=== PATIENT | female | born 2000 | race Caucasian/White ===

== ENCOUNTER 2019-09-06 13:33 | Emergency (ER) | payer BC ==
--- NOTE | 2019-09-06 13:37 | ERPHSYRPT ---
- History of Present Illness Time Seen by Provider: 09/06/19 13:37 Source: patient, family Exam Limitations: no limitations Physician History: 19 y/o white female presents with 5 weeks of intermittent vaginal bleeding after being dx with a right tubal . pts supervisor dials was dr. perez out of [facility] [place]. pt was started on methotrexate to aid in tx of pts vaginal bleeding following tubal . dx. pts pain is left lower quadrant. pt states in the last couple of days, vaginal bleeding has been increasing. pt also wants another opinion for her bleeding. called dr. gamboa and he could not see pt today so pt told to come to this ED today. CT abd/pelvis 09/05/19 small volume of hemoperitoneum with sentinel clot in left pelvis. transvaginal/ transabdominal US-small amount of hemoperitoneum c/w ct abd/pelvis on same day. Timing/Duration: week(s) (5) Activites at Onset: none Quality: cramping Onset Location: RLQ (present but not as painful as left), LLQ Pain Radiation: none Severity of Pain-Max: mild Severity of Pain-Current: mild Prior abdominal problems: other (evacuation of right tubal 5 weeks ago ) Sexual intercourse history: non-contributory Modifying Factors: Worsens With: vomiting Associated Symptoms: abdominal pain (llq), vaginal discharge (bleeding), No diaphoresis, No vomiting, No urinary frequency, No lower back pain Allergies/Adverse Reactions: No Known Drug Allergies Allergy (Unverified 09/06/19 13:59) Home Medications: Ferrous Sulfate [Iron] 325 mg PO DAILY 09/06/19 [History] Hydrocodone Bit/Acetaminophen [Hydrocodon-Acetaminophen 5-500] 1 each PO Q4H PRN 09/06/19 [History] - Review of Systems Constitutional: No Symptoms Eyes: No Symptoms Ears, Nose, & Throat: No Symptoms Respiratory: No Symptoms Cardiac: No Symptoms Abdominal/Gastrointestinal: Abdominal Pain Genitourinary Symptoms: Vaginal Bleeding Musculoskeletal: No Symptoms Skin: No Symptoms Neurological: No Symptoms Psychological: No Symptoms Endocrine: No Symptoms Hematologic/Lymphatic: No Symptoms Immunological/Allergic: No Symptoms All Other Systems: Reviewed and Negative - Past Medical History Pertinent Past Medical History: Yes Neurological History: No Pertinent History ENT History: No Pertinent History Cardiac History: No Pertinent History Respiratory History: No Pertinent History Endocrine Medical History: No Pertinent History Musculoskeletal History: No Pertinent History GI Medical History: No Pertinent History History: No Pertinent History Female Reproductive Disorders: Other (h/o right tubal ) - Social History Smoking Status: Never smoker - Nursing Vital Signs Nursing Vital Signs: Initial Vital Signs Temperature 98.1 F 09/06/19 13:43 Pulse Rate 95 H 09/06/19 13:43 Respiratory Rate 18 09/06/19 13:43 Blood Pressure 121/64 09/06/19 13:43 O2 Sat by Pulse Oximetry 100 09/06/19 13:43 Pain Scale Pain Intensity 2 - Physical Exam General Appearance: no apparent distress, alert, anxiety Eye Exam: PERRL/EOMI, eyes nml inspection Ears, Nose, Throat Exam: normal ENT inspection, moist mucous membranes Neck Exam: normal inspection, non-tender, supple, full range of motion Respiratory Exam: normal breath sounds, lungs clear, airway intact, No chest tenderness, No respiratory distress Cardiovascular Exam: regular rate/rhythm, normal heart sounds, normal peripheral pulses Gastrointestinal/Abdomen Exam: soft, normal bowel sounds, tenderness (llq), No guarding, No rebound Pelvic Exam: not done Rectal Exam: not done Back Exam: normal inspection, normal range of motion, No CVA tenderness, No vertebral tenderness Extremity Exam: normal inspection, normal range of motion, pelvis stable Neurologic Exam: alert, oriented x 3, cooperative, 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 as tested Skin Exam: normal color, warm, dry Lymphatic Exam: No adenopathy SpO2 Interpretation: normal O2 Delivery: Room Air Ordered Tests: Active Orders 24 hr Category Date Time Status IV Insertion STAT Care 09/06/19 14:15 Active CBC W DIFF Stat Lab 09/06/19 14:20 Completed CMP Stat Lab 09/06/19 14:20 Completed HCG, Quantitative (Inhouse) Stat Lab 09/06/19 15:35 Ordered PROTIME WITH INR Stat Lab 09/06/19 14:20 Completed UA W/RFX UR CULTURE Stat Lab 09/06/19 14:15 Uncollected Medication Summary Discontinued Medications Generic Name Dose Route Start Last Admin Trade Name Freq PRN Reason Stop Dose Admin Sodium Chloride 1,000 mls @ 999 mls/hr 09/06/19 14:15 09/06/19 15:32 Sodium Chloride 0.9% 1000 Ml IV 09/06/19 15:15 Infused .Q1H1M STA Infusion Sodium Chloride Confirm 09/06/19 14:23 Sodium Chloride 0.9% 1000 Ml Administered 09/06/19 14:24 Dose 1,000 mls @ .ROUTE .[facility] Lab/Rad Data: Laboratory Result Diagrams 09/06/19 14:20 09/06/19 14:20 Laboratory Results 09/06/19 09/06/19 09/06/19 Range/Units 14:20 14:20 14:20 WBC 5.4 (4.0-10.5) K/mm3 RBC 3.16 L (4.1-5.4) M/mm3 Hgb 9.5 L (12.0-16.0) gm/dl Hct 29.2 L (35-47) % MCV 92.4 (78-100) fl MCH 30.0 (26-32) pg MCHC 32.5 (32-36) g/dl RDW 14.1 H (11.5-14.0) % Plt Count 230 (150-450) K/mm3 MPV 10.1 H (6-9.5) fl Gran % 72.6 H (36.0-66.0) % Eos # (Auto) 0.07 (0-0.5) Absolute Lymphs (auto) 0.86 L (1.0-4.6) Absolute Monos (auto) 0.52 (0.0-1.3) Lymphocytes % 16.0 L (24.0-44.0) % Monocytes % 9.7 (0.0-12.0) % Eosinophils % 1.3 (0.00-5.0) % Basophils % 0.4 (0.0-0.4) % Absolute Granulocytes 3.91 (1.4-6.9) Basophils # 0.02 (0-0.4) PT 14.3 H (9.95-12.35) SECONDS INR 1.26 (0.8-3.0) Sodium 143 (137-145) mmol/L Potassium 3.7 (3.5-5.1) mmol/L Chloride 108 H (98-107) mmol/L Carbon Dioxide 24 (22-30) mmol/L Anion Gap 14.5 (5-15) MEQ/L BUN 8 (7-17) mg/dL Creatinine 0.40 L (0.52-1.04) mg/dL Estimated GFR > 60.0 ML/MIN Glucose 85 (74-106) mg/dL Calcium 9.1 (8.4-10.2) mg/dL Total Bilirubin 1.10 (0.2-1.3) mg/dL AST 15 (14-36) U/L ALT 8 (0-35) U/L Alkaline Phosphatase 46 (38-126) U/L Serum Total Protein 6.9 (6.3-8.2) g/dL Albumin 4.2 (3.5-5.0) g/dL - Progress Progress: unchanged Air Movement: good Progress Note: 09/06/19 15:52 dr. gamboa to take pt to OR for d & c, diagnostic laparoscopy and possible salpingectomy. Blood Culture(s) Obtained: No Antibiotics given: No Discussed with DrHope: Tatyana (spoke with dr. gamboa, ob, i reviewed pt hx, lab and condition with him. he is coming to ED to [facility] Will see patient in: ED Counseled pt/family regarding: lab results, diagnosis - Departure Departure Disposition: Transfer (to outpatient surgery for procedure direct from ED) Clinical Impression: Vaginal bleeding Condition: Stable Critical Care Time: No Referrals: SHAN ELIZABETH [Primary Care Provider] -
[2019-09-06] MEDS ORDERED: Sodium Chloride 0.9% 1000 ML 1,000 ML IV STA (14:15)
[2019-09-06] MEDS ORDERED: Sodium Chloride 0.9% 1000 ML 1,000 ML ONE (14:23)
[2019-09-06 14:32] LABS: Absolute Neutrophil Ct (ANC) 3.91 (1.4-6.9); BASOPHIL % 0.4 % (0.0-0.4); Basophil (Absolute #) 0.02 (0-0.4); Eosinophil % 1.3 % (0.00-5.0); Eosinophil (Absolute #) 0.07 (0-0.5); Hematocrit 29.2 % (35-47); Hemoglobin 9.5 gm/dl (12.0-16.0); Lymphocyte (Absolute #) 0.86 (1.0-4.6); Mean Cell Volume 92.4 fl (78-100); Mean Corpuscular Hgb Concent. 32.5 g/dl (32-36); Mean Platelet Volume 10.1 fl (6-9.5); Monocyte (Absolute #) 0.52 (0.0-1.3); Monocytes % 9.7 % (0.0-12.0); Neutrophil % 72.6 % (36.0-66.0); Platelet Count 230 K/mm3 (150-450); Red Blood Count 3.16 M/mm3 (4.1-5.4); Red Cell Distribution Width 14.1 % (11.5-14.0); White Blood Count 5.4 K/mm3 (4.0-10.5)
[2019-09-06 14:41] LABS: ALBUMIN 4.2 g/dL (3.5-5.0); ALKALINE PHOSPHATASE 46 U/L (38-126); ANION GAP 14.5 MEQ/L (5-15); BLOOD UREA NITROGEN 8 mg/dL (7-17); CHLORIDE 108 mmol/L (98-107); Calcium 9.1 mg/dL (8.4-10.2); Carbon Dioxide 24 mmol/L (22-30); Glucose 85 mg/dL (74-106); Potassium 3.7 mmol/L (3.5-5.1); SGOT/AST 15 U/L (14-36); SGPT/ALT 8 U/L (0-35); SODIUM 143 mmol/L (137-145); Total Protein 6.9 g/dL (6.3-8.2)
[2019-09-06 14:58] LABS: INR 1.26 (0.8-3.0); PROTIME 14.3 SECONDS (9.95-12.35)
[2019-09-06 15:41] VITALS: BP 107/70; PULSE 75; O2SAT 97
[2019-09-06] MEDS ORDERED: Quelicin Fliptop 200 MG/10 ML ONE (16:18)
[2019-09-06] MEDS ORDERED: SUBLIMAZE 100 MCG/2 ML ONE (16:18)
[2019-09-06] MEDS ORDERED: DIPRIVAN 200 MG/20 ML IV ONE (16:18)
[2019-09-06] MEDS ORDERED: Zemuron 100 MG/10 ML ONE (16:18)
[2019-09-06] MEDS ORDERED: Lactated Ringers 1,000 ML IV ONE ×2 (16:23→17:43)
[2019-09-06 16:25] LABS: Appearance CLEAR (CLEAR); Bilirubin NEGATIVE (NEGATIVE); Blood LARGE Ery/ul (0-5); Glucose NEGATIVE (NEGATIVE); Ketones NEGATIVE (NEGATIVE); Leukocyte Esterase NEGATIVE (NEGATIVE); Mucus SLIGHT /HPF (NEGATIVE); Nitrite NEGATIVE (NEGATIVE); Protein,Urine Dip NEGATIVE (Negative); Specific Gravity 1.009 (1.005-1.025); Urobilinogen NEGATIVE mg/dL (0-1); WBC 0-2 /HPF (0-5)
[2019-09-06 16:58] LABS: ABO TYPING O; Antibody Screen NEGATIVE (NEGATIVE); RH TYPING POSITIVE
[2019-09-06] MEDS ORDERED: Sensorcaine 0.25% 10 ML ONE (17:11)
[2019-09-06] MEDS ORDERED: TORAdol 30 mg Injection ONE (17:24)
[2019-09-06] MEDS ORDERED: Zofran 4 MG/2 ML VIAL ONE (17:24)
[2019-09-06] MEDS ORDERED: Decadron 4 MG INJ ONE (17:24)
[2019-09-06] MEDS ORDERED: BRIDION 200MG/2ML IV ONE (17:24)
[2019-09-06] MEDS ORDERED: Thrombin-JMI 5000 UNITS TP ONE (17:43)
[2019-09-06] MEDS ORDERED: DEMEROL 50 MG ONE (18:18)
--- NOTE | 2019-09-07 09:17 | OP ---
SURGERY DATE/TIME: 09/06/2019 1651 PREOPERATIVE DIAGNOSIS: Suspected ruptured ectopic , abdominal pelvic pain and heavy uterine bleeding. POSTOPERATIVE DIAGNOSIS: Ruptured left side ectopic distal fallopian tube, omental adhesions and hemoperitoneum. PROCEDURES: 1) Dilation and curettage. 2) Diagnostic laparoscopy. 3) Lysis of omental adhesions. 4) Evacuation of left-sided ectopic . 5) Evacuation of hemoperitoneum. SURGEON: Tom Lee D.O. ACCOUNTANCY PROFESSOR: Orion. ANESTHESIA: General. ESTIMATED BLOOD LOSS: Less than 50 cc. Hemoperitoneum approximately 75 to 100 cc. COMPLICATIONS: None. INDICATIONS: The risks, benefits, indications and alternatives of the procedure were reviewed with the patient prior to the procedure. The patient understood the risk of infection, bleeding, bowel injury, bladder injury, ureteral injury, vascular injury, possible loss of fallopian tubes, possible salpingectomy, possible salpingoscopy and possible infertility. The patient understands all of these risks associated with the surgery and desires to have this procedure as a possible need to alleviate her current medical condition. DESCRIPTION OF PROCEDURE AND FINDINGS: At this point the patient is taken to the operating room, given general sedation, placed in dorsal lithotomy position. Prepped and draped in the usual sterile fashion. A weighted speculum is then placed in the patient's vagina and the anterior lip of the cervix is grasped with a single tooth tenaculum. Endocervical dilators were advanced to the endocervical canal as a means to dilate the cervix and at this point a curette was then placed into the fundus of the uterus and curettage was performed in all quadrants of the uterus retrieving a mild amount of tissue. From this point uterine manipulator was then inserted into the uterus without complication. All instruments were then removed from the patient's vaginal region. Attention was then turned to the patient's abdomen where a 5 mm skin incision was made in the umbilical fold and a 5 mm trocar and sleeve were advanced under direct visualization without complication and pneumoperitoneum was obtained with 4 liters CO2 gas. An additional incision was made in the left middle quadrant region where a 5 mm incision was made and the 5 mm trocar and sleeve were advanced under direct visualization. An additional incision was made approximately 2 cm above the symphysis pubis where 5 mm trocar and sleeve were advanced under direct visualization and was done so without complication. At this point visualization revealed her to have approximately 3 cm dense omental adhesion between the uterus and the omentum where at this point the LigaSure was used to lyse the adhesions the dense adhesions that were located on the anterior fundal region of the uterus. After removal and dissection relieving the adhesions from the omentum to the uterus, approximately 75 to 100 cc of hemoperitoneum was noticed in the posterior cul-de-sac where evacuation was taking place. After suction, irrigation and evacuation the right fallopian tube was noted to be within normal limits as well as the ovary. The left ovary was densely adhesed to the left pelvic side wall where the uterus was rotated towards her left as well. Also noted was the distal end of the fallopian end there was a remnant of products of conception extruding from the left fallopian tube where the distal end of the tube appeared to be ruptured and products of conception were noted at this point and is removed. It will be sent to pathology. After evacuation of the hemoperitoneum there was no bleeding that was noted at the time even after releasing pneumoperitoneum and reintroducing pneumoperitoneum where visualization again revealed no bleeding that was noted coming from the left adnexa. The left adnexa appeared to be densely adhesed to the left abdominal side wall where as well the left fallopian tube was adhesed to the left side wall with the cul-de-sac as well with significant adhesion. From this point thrombin was introduced into the left adnexa for further hemostasis and was done so without complication. At this point there were no other gross abnormalities located within the abdominal cavity. At this point all instruments were then removed from the patient's abdominal region. The incisions were closed with 4-0 Monocryl suture with subsequent Dermabond. The patient was taken out of the dorsal lithotomy position and was taken out of anesthesia and was then taken to the recovery room in stable condition. All instruments and laps were accounted for x2.
== END 2019-09-06 20:00 | disposition home or self-care (01) ==
LOC: ED 13:33
DX: N93.9 Abnormal uterine and vaginal bleeding, unspecified (principal); R10.2 Pelvic and perineal pain; O00.102 Left tubal pregnancy without intrauterine pregnancy; K66.0 Peritoneal adhesions (postprocedural) (postinfection); K66.1 Hemoperitoneum
CPT/HCPCS: 36000; 36415; 80053; 81001; 84702; 85025; 85610; 86850; 86900; 86901; 96360; 96374; 99140; 99284; J0330; J1100; J1885; J2175; J2405; J2704; J3010

== ENCOUNTER 2020-11-08 09:07 | Emergency (ER) | payer MEDICAID ==
[2020-11-08 09:19] VITALS: O2SAT 100
[2020-11-08] MEDS ORDERED: Zofran 4 MG/2 ML VIAL IV ONE (09:26)
[2020-11-08] MEDS ORDERED: Sodium Chloride 0.9% 1000 ML 1,000 ML IV STA ×2 (09:26→10:34)
--- NOTE | 2020-11-08 09:26 | ERPHSYRPT ---
- History of Present Illness Time Seen by Provider: 11/08/20 09:25 Historian: patient Exam Limitations: no limitations Patient Subjective Stated Complaint: Pt is 21 weeks and when she first found out that she was she found out that her gallbladder was bad, hasn't really had an issue until last night, pt is having left sided upper abdominal pain, N&V Triage Nursing Assessment: Pt was brought to the ER by her mother, tachycardic, pain in left upper abdomen and into her back and ribs Physician History: This is a 20-year-old white female who is 21 weeks and presents with left upper quadrant abdominal pain that radiates around and through to her back. Patient had similar symptoms and was found to have cholelithiasis without cholecystitis. Patient's pain recurred last night with slow onset and persisted throughout the night and worsened this morning. She has had associated nausea and vomiting. She denies chest pain and she denies shortness of breath. Timing/Duration: yesterday Activities at Onset: none Quality: sharpness, stabbing Abdominal Pain Onset Location: LUQ, epigastric Pain Radiation: back Modifying Factors: Improves With: vomiting Associated Symptoms: nausea, vomiting Previous symptoms: same symptoms as today Allergies/Adverse Reactions: No Known Drug Allergies Allergy (Verified 11/08/20 09:27) Home Medications: Doxylamine Succinate/Vit B6 [Doxylamine-Pyridoxine 10-10 mg] 1 each PO DAILY 11/08/20 [History] Vits W-Ca,Fe,FA(<1Mg) [] 1 each PO DAILY 11/08/20 [History] Travel Risk - International Travel Have you traveled outside of the country in past 3 weeks: No - Coronavirus Screening Are you exhibiting any of the following symptoms?: No Close contact with a COVID-19 positive Pt in past 14-21 Days: No - Review of Systems Constitutional: No Symptoms Eyes: No Symptoms Ears, Nose, & Throat: No Symptoms Respiratory: No Symptoms Cardiac: No Symptoms Abdominal/Gastrointestinal: Abdominal Pain, Nausea, Vomiting Genitourinary Symptoms: No Symptoms Musculoskeletal: No Symptoms Skin: No Symptoms Neurological: No Symptoms Psychological: No Symptoms Endocrine: No Symptoms Hematologic/Lymphatic: No Symptoms All Other Systems: Reviewed and Negative - Past Medical History Pertinent Past Medical History: Yes Neurological History: No Pertinent History ENT History: No Pertinent History Cardiac History: No Pertinent History Respiratory History: No Pertinent History Endocrine Medical History: No Pertinent History Musculoskeletal History: No Pertinent History GI Medical History: No Pertinent History History: No Pertinent History Female Reproductive Disorders: Other - Past Surgical History Past Surgical History: Yes Female Surgical History: Section - Social History Smoking Status: Never smoker Exposure to second hand smoke: No Drug Use: none Patient Lives Alone: No - Female History Hx Now: Yes Expected Date of Delivery: 03/19/21 - Nursing Vital Signs Nursing Vital Signs: Initial Vital Signs Temperature 98.4 F 11/08/20 09:11 Pulse Rate 120 H 11/08/20 09:11 Blood Pressure 129/80 11/08/20 09:11 O2 Sat by Pulse Oximetry 100 11/08/20 09:11 Pain Scale Pain Intensity [Right Upper 3 Abdomen] Pain Intensity 3 - Physical Exam General Appearance: mild distress, alert, anxiety Eye Exam: PERRL/EOMI, eyes nml inspection Ears, Nose, Throat Exam: normal ENT inspection, moist mucous membranes Neck Exam: normal inspection, non-tender, supple, full range of motion Respiratory Exam: normal breath sounds, lungs clear, airway intact, No chest tenderness, No respiratory distress Cardiovascular Exam: tachycardia Gastrointestinal/Abdomen Exam: soft, normal bowel sounds, tenderness (Left upper quadrant), other, No guarding, No rebound Pelvic Exam: not done Rectal Exam: not done Back Exam: normal inspection, normal range of motion, No CVA tenderness, No vertebral tenderness Extremity Exam: normal inspection, normal range of motion, pelvis stable Neurologic Exam: alert, oriented x 3, cooperative, 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 as tested, normal mood/affect, nml cerebellar function, nml station & gait, sensation nml Skin Exam: normal color, warm, dry Lymphatic Exam: No adenopathy SpO2 Interpretation: normal SpO2: 100 O2 Delivery: Room Air - Course Nursing assessment & vital signs reviewed: Yes Ordered Tests: Active Orders 24 hr Category Date Time Status Heart Tones-ED STAT Care 11/08/20 10:17 Active IV Insertion STAT Care 11/08/20 09:26 Active AMYLASE Stat Lab 11/08/20 09:26 Completed CBC W DIFF Stat Lab 11/08/20 09:26 Completed CMP Stat Lab 11/08/20 09:26 Completed LIPASE Stat Lab 11/08/20 09:26 Completed Lactic Acid Stat Lab 11/08/20 09:26 Completed UA W/RFX UR CULTURE Stat Lab 11/08/20 10:41 Results Medication Summary Generic Name Dose Route Start Last Admin Trade Name Joesph PRN Reason Stop Dose Admin Sodium Chloride 1,000 mls @ 999 mls/hr 11/08/20 10:34 11/08/20 10:40 Sodium Chloride 0.9% 1000 Ml IV 11/08/20 11:34 999 mls/hr .Q1H1M STA Administration Discontinued Medications Generic Name Dose Route Start Last Admin Trade Name Joesph PRN Reason Stop Dose Admin Sodium Chloride 1,000 mls @ 999 mls/hr 11/08/20 09:26 11/08/20 10:41 Sodium Chloride 0.9% 1000 Ml IV 11/08/20 10:26 Infused .Q1H1M STA Infusion Sodium Chloride Confirm 11/08/20 09:35 Sodium Chloride 0.9% 1000 Ml Administered 11/08/20 09:36 Dose 1,000 mls @ ud .ROUTE .ST[facility] ONE Sodium Chloride Confirm 11/08/20 10:38 Sodium Chloride 0.9% 1000 Ml Administered 11/08/20 10:39 Dose 1,000 mls @ ud .ROUTE .STK-[facility] ONE Nalbuphine HCl 5 mg 11/08/20 09:30 11/08/20 09:39 Nubain 10 Mg/Ml IV 11/08/20 09:31 5 mg STAT ONE Administration Nalbuphine HCl Confirm 11/08/20 09:35 Nubain 10 Mg/Ml Administered 11/08/20 09:36 Dose 10 mg .ROUTE .STK-MED ONE Ondansetron HCl 4 mg 11/08/20 09:26 11/08/20 09:36 Zofran 4 Mg/2 Ml Vial IV 11/08/20 09:27 4 mg STAT ONE Administration Ondansetron HCl Confirm 11/08/20 09:35 Zofran 4 Mg/2 Ml Vial Administered 11/08/20 09:36 Dose 4 mg .ROUTE .STK-MED ONE Lab/Rad Data: Laboratory Result Diagrams 11/08/20 09:26 11/08/20 09:26 Laboratory Results 11/08/20 11/08/20 11/08/20 Range/Units 10:41 09:26 09:26 WBC (4.0-10.5) K/mm3 RBC (4.1-5.4) M/mm3 Hgb (12.0-16.0) gm/dl Hct (35-47) % MCV (78-100) fl MCH (26-32) pg MCHC (32-36) g/dl RDW (11.5-14.0) % Plt Count (150-450) K/mm3 MPV (7.5-11.0) fl Gran % (36.0-66.0) % Eos # (Auto) (0-0.5) Absolute Lymphs (auto) (1.0-4.6) Absolute Monos (auto) (0.0-1.3) Lymphocytes % (24.0-44.0) % Monocytes % (0.0-12.0) % Eosinophils % (0.00-5.0) % Basophils % (0.0-0.4) % Absolute Granulocytes (1.4-6.9) Basophils # (0-0.4) Sodium 138 (137-145) mmol/L Potassium 3.5 (3.5-5.1) mmol/L Chloride 106 (98-107) mmol/L Carbon Dioxide 23 (22-30) mmol/L Anion Gap 12.8 (5-15) MEQ/L BUN 6 L (7-17) mg/dL Creatinine 0.37 L (0.52-1.04) mg/dL Estimated GFR > 60.0 ML/MIN Glucose 99 (74-106) mg/dL Lactic Acid 1.9 (0.4-2.0) Calcium 9.5 (8.4-10.2) mg/dL Total Bilirubin 0.30 (0.2-1.3) mg/dL AST 22 (14-36) U/L ALT 13 (0-35) U/L Alkaline Phosphatase 65 (38-126) U/L Serum Total Protein 7.5 (6.3-8.2) g/dL Albumin 4.3 (3.5-5.0) g/dL Amylase 89 (30-110) U/L Lipase 95 (23-300) U/L Urine Color YELLOW (YELLOW) Urine Appearance CLOUDY (CLEAR) Urine pH 8.0 (5-6) Ur Specific [place] 1.013 (1.005-1.025) Urine Protein NEGATIVE (Negative) Urine Ketones NEGATIVE (NEGATIVE) Urine Blood NEGATIVE (0-5) Segundo/ul Urine Nitrite NEGATIVE (NEGATIVE) Urine Bilirubin NEGATIVE (NEGATIVE) Urine Urobilinogen NEGATIVE (0-1) mg/dL Ur Leukocyte Esterase NEGATIVE (NEGATIVE) Urine WBC (Auto) 0-2 (0-5) /HPF Urine RBC (Auto) 0-2 (0-2) /HPF U Epithel Cells (Auto) RARE (FEW) /HPF Urine Bacteria (Auto) RARE (NEGATIVE) /HPF Amorphous Crystals MANY (NEGATIVE) /HPF Urine Mucus (Auto) SLIGHT (NEGATIVE) /HPF Urine Culture Reflexed Pending Urine Glucose NEGATIVE (NEGATIVE) mg/dL 11/08/20 Range/Units 09:26 WBC 10.4 (4.0-10.5) K/mm3 RBC 3.36 L (4.1-5.4) M/mm3 Hgb 10.4 L (12.0-16.0) gm/dl Hct 31.2 L (35-47) % MCV 92.9 (78-100) fl MCH 31.0 (26-32) pg MCHC 33.3 (32-36) g/dl RDW 14.4 H (11.5-14.0) % Plt Count 225 (150-450) K/mm3 MPV 10.8 (7.5-11.0) fl Gran % 85.9 H (36.0-66.0) % Eos # (Auto) 0.04 (0-0.5) Absolute Lymphs (auto) 0.87 L (1.0-4.6) Absolute Monos (auto) 0.54 (0.0-1.3) Lymphocytes % 8.4 L (24.0-44.0) % Monocytes % 5.2 (0.0-12.0) % Eosinophils % 0.4 (0.00-5.0) % Basophils % 0.1 (0.0-0.4) % Absolute Granulocytes 8.95 H (1.4-6.9) Basophils # 0.01 (0-0.4) Sodium (137-145) mmol/L Potassium (3.5-5.1) mmol/L Chloride (98-107) mmol/L Carbon Dioxide (22-30) mmol/L Anion Gap (5-15) MEQ/L BUN (7-17) mg/dL Creatinine (0.52-1.04) mg/dL Estimated GFR ML/MIN Glucose (74-106) mg/dL Lactic Acid (0.4-2.0) Calcium (8.4-10.2) mg/dL Total Bilirubin (0.2-1.3) mg/dL AST (14-36) U/L ALT (0-35) U/L Alkaline Phosphatase (38-126) U/L Serum Total Protein (6.3-8.2) g/dL Albumin (3.5-5.0) g/dL Amylase (30-110) U/L Lipase (23-300) U/L Urine Color (YELLOW) Urine Appearance (CLEAR) Urine pH (5-6) Ur Specific [place] (1.005-1.025) Urine Protein (Negative) Urine Ketones (NEGATIVE) Urine Blood (0-5) Segundo/ul Urine Nitrite (NEGATIVE) Urine Bilirubin (NEGATIVE) Urine Urobilinogen (0-1) mg/dL Ur Leukocyte Esterase (NEGATIVE) Urine WBC (Auto) (0-5) /HPF Urine RBC (Auto) (0-2) /HPF U Epithel Cells (Auto) (FEW) /HPF Urine Bacteria (Auto) (NEGATIVE) /HPF Amorphous Crystals (NEGATIVE) /HPF Urine Mucus (Auto) (NEGATIVE) /HPF Urine Culture Reflexed Urine Glucose (NEGATIVE) mg/dL - Progress Progress: improved, pain not gone completely, re-examined Progress Note: 11/08/20 11:26 Medical decision making: This patient is 21 weeks and presented with nausea vomiting and left upper quadrant abdominal pain with radiation to her back. It is presumed that she has had a gallbladder "attack". She does have a history of cholelithiasis. Patient symptomatically is improved. She has no further abdominal pain or epigastric discomfort. She does have mild amount of back pain. We have been giving her a trial of oral fluids. If she tolerates this we will discharge her to home. She can use Tylenol and her doxylami ne/pyridoxine for nausea and vomiting control. We are having OB see this patient prior to her discharge home. Counseled pt/family regarding: lab results, diagnosis, need for follow-up - Departure Departure Disposition: Home Clinical Impression: Abdominal pain during in second trimester, Nausea/vomiting in Condition: Stable Critical Care Time: No Referrals: PRIYA LAST [Primary Care Provider] - Additional Instructions: Avoid fatty greasy spicy foods. Use Tylenol for pain. Use your doxylamine/pyridoxine medication to control your nausea and vomiting. Go directly from here to the obstetric department for further evaluation and monitoring. Follow-up with your dough sheeter for further management.
[2020-11-08] MEDS ORDERED: Nubain 10 MG/ML IV ONE (09:30)
[2020-11-08] MEDS ORDERED: Nubain 10 MG/ML ONE (09:35)
[2020-11-08] MEDS ORDERED: Sodium Chloride 0.9% 1000 ML 1,000 ML ONE ×2 (09:35→10:38)
[2020-11-08] MEDS ORDERED: Zofran 4 MG/2 ML VIAL ONE (09:35)
[2020-11-08 09:38] LABS: Absolute Neutrophil Ct (ANC) 8.95 (1.4-6.9); BASOPHIL % 0.1 % (0.0-0.4); Basophil (Absolute #) 0.01 (0-0.4); Eosinophil % 0.4 % (0.00-5.0); Eosinophil (Absolute #) 0.04 (0-0.5); Hematocrit 31.2 % (35-47); Hemoglobin 10.4 gm/dl (12.0-16.0); Lymphocyte (Absolute #) 0.87 (1.0-4.6); Lymphocytes % 8.4 % (24.0-44.0); Mean Cell Volume 92.9 fl (78-100); Mean Corpuscular Hgb Concent. 33.3 g/dl (32-36); Mean Platelet Volume 10.8 fl (7.5-11.0); Monocyte (Absolute #) 0.54 (0.0-1.3); Monocytes % 5.2 % (0.0-12.0); Neutrophil % 85.9 % (36.0-66.0); Platelet Count 225 K/mm3 (150-450); Red Blood Count 3.36 M/mm3 (4.1-5.4); Red Cell Distribution Width 14.4 % (11.5-14.0); White Blood Count 10.4 K/mm3 (4.0-10.5)
[2020-11-08 09:45] LABS: ALBUMIN 4.3 g/dL (3.5-5.0); ALKALINE PHOSPHATASE 65 U/L (38-126); AMYLASE 89 U/L (30-110); ANION GAP 12.8 MEQ/L (5-15); BLOOD UREA NITROGEN 6 mg/dL (7-17); CHLORIDE 106 mmol/L (98-107); Calcium 9.5 mg/dL (8.4-10.2); Carbon Dioxide 23 mmol/L (22-30); Creatinine 1 0.37 mg/dL (0.52-1.04); EST GLOMERULAR FILTRATION RATE > 60.0 ML/MIN; Glucose 99 mg/dL (74-106); LIPASE 95 U/L (23-300); Potassium 3.5 mmol/L (3.5-5.1); SGOT/AST 22 U/L (14-36); SGPT/ALT 13 U/L (0-35); SODIUM 138 mmol/L (137-145); Total Protein 7.5 g/dL (6.3-8.2)
[2020-11-08 10:39] LABS: Appearance CLOUDY (CLEAR); Bacteria RARE /HPF (NEGATIVE); Bilirubin NEGATIVE (NEGATIVE); Blood NEGATIVE Ery/ul (0-5); Epithelial Cells RARE /HPF (FEW); Glucose NEGATIVE (NEGATIVE); Ketones NEGATIVE (NEGATIVE); Leukocyte Esterase NEGATIVE (NEGATIVE); Mucus SLIGHT /HPF (NEGATIVE); Nitrite NEGATIVE (NEGATIVE); Protein,Urine Dip NEGATIVE (Negative); RBC 0-2 /HPF (0-2); Specific Gravity 1.013 (1.005-1.025); Urobilinogen NEGATIVE mg/dL (0-1); WBC 0-2 /HPF (0-5)
[2020-11-08 10:47] LABS: Amourphous Crystal MANY /HPF (NEGATIVE)
[2020-11-08 11:22] VITALS: BP 116/76; PULSE 102
== END 2020-11-08 12:15 | disposition other institution (70) ==
LOC: ED 09:07
DX: O21.0 Mild hyperemesis gravidarum (principal); Z3A.21 21 weeks gestation of pregnancy; R10.9 Unspecified abdominal pain
CPT/HCPCS: 36000; 36415; 80053; 81001; 82150; 83605; 83690; 85025; 96360; 96374; 96375; 99284; J2300; J2405

== ENCOUNTER 2020-11-08 12:10 | Observation (INO) | payer MEDICAID ==
[2020-11-08 13:16] VITALS: BP 115/68; PULSE 102; O2SAT 99
== END 2020-11-08 13:25 | disposition home or self-care (01) ==
LOC: OB 12:10
PROVIDERS: ADMIT Obstetrics & Gynecology; ATTEND Obstetrics & Gynecology
DX: Z34.82 Encounter for supervision of other normal pregnancy, second trimester (principal); Z3A.21 21 weeks gestation of pregnancy
CPT/HCPCS: 36000; 36415; 80053; 81001; 82150; 83605; 83690; 85025; 96360; 96374; 96375; 99284; G0378; J2300; J2405

== ENCOUNTER 2021-02-09 13:21 | Observation (INO) | payer MEDICAID ==
[2021-02-09 14:10] VITALS: BP 115/75; PULSE 115
== END 2021-02-09 14:50 | disposition home or self-care (01) ==
LOC: WHC 13:21 → OB 13:50
PROVIDERS: ADMIT Obstetrics & Gynecology; ATTEND Obstetrics & Gynecology
DX: O36.5930 Maternal care for other known or suspected poor fetal growth, third trimester, not applicable or unspecified (principal); Z3A.34 34 weeks gestation of pregnancy
CPT/HCPCS: 59025; 59426; 81002; G0378

== ENCOUNTER 2021-02-16 13:45 | Observation (INO) | payer MEDICAID ==
[2021-02-16 14:08] VITALS: BP 130/78
[2021-02-16 15:37] VITALS: PULSE 89
== END 2021-02-16 15:15 | disposition home or self-care (01) ==
LOC: OB 13:45
PROVIDERS: ADMIT Obstetrics & Gynecology; ATTEND Obstetrics & Gynecology
DX: O36.5930 Maternal care for other known or suspected poor fetal growth, third trimester, not applicable or unspecified (principal); Z3A.35 35 weeks gestation of pregnancy
CPT/HCPCS: 59025; G0378

== ENCOUNTER 2021-02-23 13:00 | Observation (INO) | payer MEDICAID ==
--- NOTE | 2021-02-23 13:56 | XRAY ---
Indication: growth. 2-dimensional OB ultrasound performed. Comparison: January 21 2021 There is again a single viable intrauterine in cephalic presentation. heart rate 159 BPM. Posterior fundal placenta without abruption/previa. BPD measures 8.73 cm corresponding to 35 weeks 2 days. HC measures 31.59 cm corresponding to 35 weeks 3 days. AC measures 32.01 cm corresponding to 36 weeks 0 days. FL measures 6.92 cm corresponding to 35 weeks 4 days. Estimated weight 6 lbs. 1 oz., +/-15 ounces. Approximately 30 percentile. SEAN is 17.7 cm. Impression: Again single viable intrauterine with mean gestational age 35 weeks 4 days. There has been progression of the . No new/acute abnormalities.
[2021-02-23 14:02] VITALS: BP 121/85; PULSE 114
== END 2021-02-23 14:35 | disposition home or self-care (01) ==
LOC: OB 13:00
PROVIDERS: ADMIT Obstetrics & Gynecology; ATTEND Obstetrics & Gynecology
DX: Z34.83 Encounter for supervision of other normal pregnancy, third trimester (principal); Z3A.36 36 weeks gestation of pregnancy
CPT/HCPCS: 59025; 76816; G0378

== ENCOUNTER 2021-03-05 12:02 | Observation (INO) | payer MEDICAID ==
[2021-03-05 13:55] VITALS: BP 119/73; PULSE 69
== END 2021-03-05 13:10 | disposition home or self-care (01) ==
LOC: OB 12:02
PROVIDERS: ADMIT Family Medicine; ATTEND Family Medicine
DX: Z34.83 Encounter for supervision of other normal pregnancy, third trimester (principal); Z3A.34 34 weeks gestation of pregnancy
CPT/HCPCS: 59025; G0378

== ENCOUNTER 2021-03-10 04:50 | Inpatient (IN) | payer MEDICAID ==
[2021-03-10] MEDS ORDERED: Reglan 10 MG/2 ML IV SCH (05:00)
[2021-03-10] MEDS ORDERED: SOD CITRATE-CITRIC ACID SOLN PO SCH (05:00)
[2021-03-10] MEDS ORDERED: Lactated Ringers 1,000 ML IV ONE (05:00)
[2021-03-10] MEDS ORDERED: Lactated Ringers 1,000 ML IV SCH (05:00)
[2021-03-10] MEDS ORDERED: Pepcid 20 MG VIAL IV SCH (05:00)
[2021-03-10] MEDS ORDERED: CEFAZOLIN 2 GM-D5W BAG** 2 GM/50 ML ML IV SCH (05:30)
[2021-03-10 05:32] LABS: Amourphous Crystal FEW /HPF (NEGATIVE); Appearance SLIGHTLY CLOUDY (CLEAR); Bacteria MANY /HPF (NEGATIVE); Bilirubin NEGATIVE (NEGATIVE); Blood NEGATIVE Ery/ul (0-5); Epithelial Cells RARE /HPF (FEW); Glucose NEGATIVE (NEGATIVE); Ketones NEGATIVE (NEGATIVE); Leukocyte Esterase TRACE (NEGATIVE); Mucus SLIGHT /HPF (NEGATIVE); Nitrite NEGATIVE (NEGATIVE); Protein,Urine Dip NEGATIVE (Negative); RBC 0-2 /HPF (0-2); Specific Gravity 1.005 (1.005-1.025); Urobilinogen NEGATIVE mg/dL (0-1)
[2021-03-10 05:37] LABS: Hematocrit 35.1 % (35-47); Mean Cell Volume 87.5 fl (78-100); Mean Corpuscular Hemoglobin 27.4 pg (26-32); Mean Corpuscular Hgb Concent. 31.3 g/dl (32-36); Mean Platelet Volume 11.5 fl (7.5-11.0); Platelet Count 203 K/mm3 (150-450); Red Blood Count 4.01 M/mm3 (4.1-5.4); Red Cell Distribution Width 18.7 % (11.5-14.0); White Blood Count 6.4 K/mm3 (4.0-10.5)
[2021-03-10 06:00] LABS: INR 0.98 (0.8-3.0); PROTIME 11.1 SECONDS (9.95-12.35)
[2021-03-10 06:03] LABS: PTT 25.6 SECONDS (25.3-37.0)
[2021-03-10 06:27] LABS: Amphetamine,Urine NEGATIVE (NEGATIVE); Barbiturate,Urine NEGATIVE (NEGATIVE); Benzodiazepine,Urine NEGATIVE (NEGATIVE); Cocaine,Urine NEGATIVE (NEGATIVE); Methadone,Urine NEGATIVE (NEGATIVE); Opiate,Urine NEGATIVE (NEGATIVE); PCP,Urine NEGATIVE (NEGATIVE); THC,Urine NEGATIVE (NEGATIVE)
[2021-03-10 06:32] LABS: ABO TYPING O; Antibody Screen NEGATIVE (NEGATIVE); RH TYPING POSITIVE
[2021-03-10] MEDS ORDERED: LANSINOH 40 GM TOP PRN (10:00)
[2021-03-10] MEDS ORDERED: Zofran 4 MG/2 ML VIAL IV PRN (10:00)
[2021-03-10] MEDS ORDERED: Dextrose 5%-Lr IV Solution 1000 ML 1,000 ML IV SCH (10:00)
[2021-03-10] MEDS ORDERED: PERCOCET TABLET 5/325MG PO PRN (10:00)
[2021-03-10] MEDS ORDERED: MORPHINE SULFATE 2 MG INJ IV PRN (10:00)
[2021-03-10] MEDS ORDERED: BENADRYL 50 MG/ML IV PRN (10:00)
[2021-03-10] MEDS ORDERED: Nubain 10 MG/ML IV PRN (10:00)
[2021-03-10] MEDS ORDERED: Adacel Vial IM ONE (10:00)
[2021-03-10] MEDS ORDERED: M-M-R II Vaccine With Diluent SQ ONE (10:00)
[2021-03-10] MEDS ORDERED: Mylicon 80MG PO PRN (10:00)
[2021-03-10] MEDS ORDERED: Dulcolax 10 MG SUPP PR PRN (10:00)
[2021-03-10] MEDS ORDERED: Anucort-HC SUPPOSITORY PR PRN (10:00)
[2021-03-10] MEDS ORDERED: CORTISONE 1% CREAM TP PRN (10:00)
[2021-03-10] MEDS ORDERED: CLARITIN 10 MG PO PRN (10:00)
[2021-03-10] MEDS ORDERED: Narcan 0.4 MG/ML IV PRN (10:00)
[2021-03-10] MEDS ORDERED: HOLD NARCOTIC ANALGESICS AND SEDATIVES X24 HR MC PRN (10:00)
[2021-03-10] MEDS ORDERED: Ambien 10 MG PO PRN (10:00)
[2021-03-10] MEDS ORDERED: KEFZOL 1 GM/50 ML PREMIX** 1 GM/50 ML IVPB IV SCH (16:00)
[2021-03-10] MEDS: MOTRIN 400 MG PO PRN (18:39)
[2021-03-10] MEDS: Colace 100 MG PO SCH (21:34)
[2021-03-10] MEDS: TYLENOL EXTRA STRENGTH 500 MG PO PRN (21:34)
[2021-03-11] MEDS: MOTRIN 400 MG PO PRN ×4 (00:19→19:07)
[2021-03-11] MEDS: TYLENOL EXTRA STRENGTH 500 MG PO PRN ×2 (05:35→10:54)
[2021-03-11 05:48] LABS: Absolute Neutrophil Ct (ANC) 7.22 (1.4-6.9); BASOPHIL % 0.2 % (0.0-0.4); Basophil (Absolute #) 0.02 (0-0.4); Eosinophil % 0.7 % (0.00-5.0); Eosinophil (Absolute #) 0.07 (0-0.5); Hematocrit 31.2 % (35-47); Hemoglobin 9.6 gm/dl (12.0-16.0); Lymphocyte (Absolute #) 2.23 (1.0-4.6); Mean Cell Volume 89.7 fl (78-100); Mean Corpuscular Hemoglobin 27.6 pg (26-32); Mean Corpuscular Hgb Concent. 30.8 g/dl (32-36); Mean Platelet Volume 11.5 fl (7.5-11.0); Monocyte (Absolute #) 1.07 (0.0-1.3); Monocytes % 10.1 % (0.0-12.0); Platelet Count 213 K/mm3 (150-450); Red Blood Count 3.48 M/mm3 (4.1-5.4); Red Cell Distribution Width 18.9 % (11.5-14.0); White Blood Count 10.6 K/mm3 (4.0-10.5)
--- NOTE | 2021-03-11 08:25 | PCM.NOTE ---
Date and Time: 03/11/21822 Subjective Assessment: POD 1 PT RESTING IN BED AND DOING WELL ABLE TO AMBULATE AND TOLERATE DIET VSS AFEBRILE ABD; SOFT, INCISION C/D/INTACT UTERUS; FIRM LOCHIA; MILD A/P SP CSECTION POD 1 DOING WELL DC HOME TOMORROW PER PT H/H STABLE OBJECTIVE DATA Vital Signs: Vital Signs - 24 hr Temp Pulse Resp BP Pulse Ox 03/11/21 07:00 98 03/11/21 06:00 98 03/11/21 05:00 98.1 F 83 20 125/58 98 03/11/21 04:00 98 03/11/21 03:00 97 03/11/21 01:00 98 03/11/21 00:00 98.4 F 81 20 125/71 99 03/10/21 23:00 100 03/10/21 22:00 100 03/10/21 21:00 100 03/10/21 20:00 98.2 F 84 20 131/83 100 03/10/21 19:00 99 03/10/21 18:00 98.1 F 85 18 118/68 100 03/10/21 17:00 97 03/10/21 16:00 98 03/10/21 15:00 99 03/10/21 14:00 97.6 F 90 18 132/75 100 03/10/21 13:00 99 03/10/21 12:15 88 18 128/70 100 03/10/21 12:00 100 03/10/21 11:15 97.5 F 84 18 139/86 03/10/21 11:00 100 03/10/21 10:15 89 18 124/73 99 03/10/21 10:00 125 H 18 125/74 100 Pain Assessment - Last Documented Pain Intensity [Anterior] 2 Pain Intensity 2 Pain Scale Used 0-10 Pain Scale Intake and Output: Intake & Output 03/08/21 03/09/21 03/10/21 03/11/21 11:59 11:59 11:59 11:59 Intake Total 2421 Output Total 3450 Balance -1029 Weight 58.967 kg Lab Results: Lab Results-Last 24 Hours 03/11/21 Range/Units 05:28 WBC 10.6 H (4.0-10.5) K/mm3 RBC 3.48 L (4.1-5.4) M/mm3 Hgb 9.6 L (12.0-16.0) gm/dl Hct 31.2 L (35-47) % MCV 89.7 (78-100) fl MCH 27.6 (26-32) pg MCHC 30.8 L (32-36) g/dl RDW 18.9 H (11.5-14.0) % Plt Count 213 (150-450) K/mm3 MPV 11.5 H (7.5-11.0) fl Gran % 68.0 H (36.0-66.0) % Eos # (Auto) 0.07 (0-0.5) Absolute Lymphs (auto) 2.23 (1.0-4.6) Absolute Monos (auto) 1.07 (0.0-1.3) Lymphocytes % 21.0 L (24.0-44.0) % Monocytes % 10.1 (0.0-12.0) % Eosinophils % 0.7 (0.00-5.0) % Basophils % 0.2 (0.0-0.4) % Absolute Granulocytes 7.22 H (1.4-6.9) Basophils # 0.02 (0-0.4)
[2021-03-11 09:48] VITALS: O2SAT 100
--- NOTE | 2021-03-11 09:58 | OP ---
SURGERY DATE/TIME: 03/10/2021 0753 PREOPERATIVE DIAGNOSIS: Intrauterine at 38 weeks and 6 days gestation with previous section currently with small for gestational age for repeat section. POSTOPERATIVE DIAGNOSIS: Intrauterine at 38 weeks and 6 days gestation with previous section currently with small for gestational age for repeat section. PROCEDURE: Repeat section, low flap transverse uterine incision, Pfannenstiel skin incision. SURGEON: Tom Lee D.O. BARREL FINISHER: Orion Du, measurement technician. ANESTHESIA: Spinal. ESTIMATED BLOOD LOSS: 450 cc. COMPLICATIONS: None. INDICATIONS: The risks, benefits, indications and alternatives of the procedure were reviewed with the patient prior to procedure. The patient understood the risk of infection, bleeding, bowel injury, bladder injury, ureteral injury, uterine perforation, pelvic infection, clotting disorder associated with the surgery however desires to have this surgery as a possible means to alleviate her current medical condition. DESCRIPTION OF PROCEDURE AND FINDINGS: At this point the patient is taken to the operating room where her spinal anesthesia was found to adequate. She was then prepared and draped in normal sterile fashion in the dorsal supine position with leftward tilt. A Pfannenstiel skin incision is made with a scalpel and carried through to the underlying layer of the fascia with Bovie. The fascia was then incised in the midline and the incision extended laterally with Gant scissors. The superior aspect of the fascial incision was then grasped Terrell clamps elevated and the underlying rectus muscles dissected off bluntly. Attention is then turned to the inferior aspect of this incision which in similar fashion was grasped, tented up with Terrell clamps and the rectus muscles dissected off bluntly. The rectus muscles were then in the midline and the peritoneum identified, tented up and entered sharply with Metzenbaum scissors. The peritoneal incision was then extended superiorly and inferiorly with good visualization of the bladder. The bladder blade was inserted and the vesicouterine peritoneum identified, grasped with pickups and entered sharply with Metzenbaum scissors. This incision was then extended laterally and bladder flap created digitally. The bladder blade was then re-inserted and the lower uterine segment incised in transverse fashion with a scalpel. The uterine incision was then extended laterally with bandage scissors. The bladder blade was then removed and infant's head delivered atraumatically. The nose and mouth were suctioned with the bulb suction cup and cord clamped and cut. The was then handed off to the awaiting nurses. The placenta was then removed manually. The uterus exteriorized and cleared of all clots and debris. The uterine incision was repaired with 1-0 chromic in a running locked fashion. A second layer of the same suture was used to obtain excellent hemostasis. The uterus is then returned to the abdomen. The gutters were cleared of all clots and the peritoneal muscle closed in interrupted fashion using 2-0 chromic suture. The fascia was reapproximated with 0 Vicryl in running fashion. The subcutaneous layer was closed with 3-0 plain suture. The skin was closed with absorbable melissa called INSORB. The patient tolerated the procedure well. Sponge, lap, needle and instrument counts were correct x2. The patient was then taken to the recovery room in stable condition. The patient delivered a live baby girl at 0823 hours. 's were 9 at 1 minute and 9 at 5 minutes and the delivery weight was 7 pounds 1 ounce.
[2021-03-11] MEDS ORDERED: FERREX 150 PO SCH (10:00)
[2021-03-11] MEDS ORDERED: Restoril 15 MG PO PRN (10:00)
[2021-03-11] MEDS ORDERED: DEMEROL 50 MG IV PRN (10:00)
[2021-03-11] MEDS: Colace 100 MG PO SCH ×2 (10:54→21:33)
[2021-03-11] MEDS: NORCO 5/325 MG PO PRN ×2 (15:55→21:33)
[2021-03-12] MEDS: MOTRIN 400 MG PO PRN ×2 (01:44→09:54)
[2021-03-12] MEDS: NORCO 5/325 MG PO PRN (01:46)
--- NOTE | 2021-03-12 07:45 | PCM.NOTE ---
Date and Time: 03/12/21 0744 Subjective Assessment: POD 2 PT RESTING AND DOING WELL VSS AFEBRILE A/P SP CSECTION POD 2 DC HOME TODAY FU OFFICE IN 2 WKS OBJECTIVE DATA Vital Signs: Vital Signs - 24 hr Temp Pulse Resp BP Pulse Ox 03/12/21 02:00 97.7 F 90 18 122/70 100 03/11/21 20:00 97.7 F 90 20 132/74 100 03/11/21 08:00 94 H 127/77 100 Pain Assessment - Last Documented Pain Intensity [Anterior] 5 Pain Intensity 7 Pain Scale Used 0-10 Pain Scale Intake and Output: Intake & Output 03/09/21 03/10/21 03/11/21 03/12/21 11:59 11:59 11:59 11:59 Intake Total 2421 1180 Output Total 3450 Balance -1029 1180 Weight 58.967 kg
--- NOTE | 2021-03-12 07:48 | PCM.DS ---
Discharge Summary Date of Admission: 03/10/21 04:50 Admitting Physician: MARYLOU GUALLPA DO Consults: Consults on Case 03/10/21 05:00 Notify Anesthesia Provider ROUTINE Notify Physician OF ADMISSION 03/10/21 10:00 Notify Anesthesia Provider PRN 03/10/21 10:55 Navigation ONCE Primary Care Provider: PRIYA LAST Allergies Allergies No Known Drug Allergies Allergy (Verified 03/10/21 05:12) Hospital Summary - Hospital Course Hospital Course: PT ADMITTED ON MARCH 10 FOR UNDERGOING REPEAT CSECTION AND WAS DONE SO WITHOUT COMPLICATION. DURING POSTOP PERIOD DID WELL WITH STABLE HGB AT 9.7. PT ABLE TO AMBULATE AND TOLERATE DIET AND NOW STABLE FOR DC. PT GIVEN IBUPROFEN FOR PAIN MANAGEMENT AND WAS ADVISED TO FU IN OFFICE IN 2 WKS FOR POSTOP EVALUATION. ALL QUESTIONS ANSWERED TO HER SATISFACTION. - Vitals & Intake/Output Vital Signs: Vital Signs Temperature 97.7 F 03/12/21 02:00 Pulse Rate 90 03/12/21 02:00 Respiratory Rate 18 03/12/21 02:00 Blood Pressure 122/70 03/12/21 02:00 O2 Sat by Pulse Oximetry 100 03/12/21 02:00 Intake & Output: Intake & Output 03/09/21 03/10/21 03/11/21 03/12/21 11:59 11:59 11:59 11:59 Intake Total 2421 1180 Output Total 3450 Balance -1029 1180 Weight 58.967 kg - Lab Result Diagrams: 03/11/21 05:28 Micro Results-Entire Visit: Microbiology 03/10/21 08:10 Urine Culture - Preliminary Urine, Catheterized NO GROWTH TO DATE 03/10/21 05:00 Urine Culture - Final Clean Catch Midstream NO GROWTH Final Diagnosis/Problem List - Final Discharge Diagnosis/Problem (1) delivery delivered Current Visit: Yes Status: Acute Code(s): O82 - ENCOUNTER FOR DELIVERY WITHOUT INDICATION - Discharge Disposition: Home, Self-Care Condition: Stable Prescriptions: No Action Vits W-Ca,Fe,FA(<1Mg) [] 1 tab PO DAILY Ferrous Sulfate [Ferosul] 1 tab PO BID Follow up with: PRIYA LAST [Primary Care Provider] - MARYLOU GUALLPA DO [ACTIVE STAFF] - 2 weeks (NO HEAVY LIFTING MAY SHOWER BUT NO BATH FOR 2 WKS NO DRIVING FOR 10 DAYS)
[2021-03-12 10:07] VITALS: BP 124/80; PULSE 97
[2021-03-12] MEDS ORDERED: MORPHINE SULFATE 10 MG/ML IV ONE (10:24)
[2021-03-12] MEDS ORDERED: Astramorph-Pf 5 MG/10 ML IV ONE (10:24)
[2021-03-12] MEDS ORDERED: Naropin 0.5% 30 ML VIAL IJ ONE (10:24)
[2021-03-12] MEDS ORDERED: TRANEXAMIC ACID 1000 MG/10 ML 1,000 MG in Sodium Chloride 0.9% 100 ML BAG 100 ML IV ONE (10:24)
[2021-03-12] MEDS ORDERED: Versed 2 MG/2 ML Injection IV ONE (10:24)
[2021-03-12] MEDS ORDERED: Zofran 4 MG/2 ML VIAL IV ONE (10:24)
[2021-03-12] MEDS ORDERED: TORAdol 30 mg Injection IJ ONE (10:24)
[2021-03-12] MEDS ORDERED: Decadron 4 MG INJ IV ONE ×2 (10:24)
[2021-03-12] MEDS ORDERED: Ketamine HCl 50 MG/ML IV ONE (10:24)
[2021-03-12] MEDS ORDERED: EPINEPHRINE 1MG/ML AMP IJ ONE (10:24)
[2021-03-12] MEDS ORDERED: Pitocin 10 UNITS/ML IV ONE (10:24)
== END 2021-03-12 10:25 | disposition home or self-care (01) | DRG 788 ==
LOC: OB 04:50 → EDSTATUS 07:10
PROVIDERS: ADMIT Obstetrics & Gynecology; ATTEND Obstetrics & Gynecology
PROC: 10D00Z1 Extraction of Products of Conception, Low, Open Approach (ICD-10-PCS; principal; 2021-03-10)
DX: O34.211 Maternal care for low transverse scar from previous cesarean delivery (principal); Z3A.38 38 weeks gestation of pregnancy; Z37.0 Single live birth
CPT/HCPCS: 36415; 59514; 64488; 76937; 76942; 80307; 81001; 85025; 85027; 85610; 85730; 86850; 86900; 86901; 87086; 87340; 90471; 90472; 90707; 90715; J0171; J0690; J1100; J1885; J2250; J2270; J2274; J2405; J2590; J2795; L0625; A9270-GY

== ENCOUNTER 2021-03-13 16:20 | Emergency (ER) | payer MEDICAID ==
[2021-03-13 17:14] LABS: Absolute Neutrophil Ct (ANC) 3.37 (1.4-6.9); BASOPHIL % 0.4 % (0.0-0.4); Basophil (Absolute #) 0.02 (0-0.4); Eosinophil % 4.7 % (0.00-5.0); Eosinophil (Absolute #) 0.25 (0-0.5); Hematocrit 34.1 % (35-47); Hemoglobin 10.4 gm/dl (12.0-16.0); Lymphocytes % 20.9 % (24.0-44.0); Mean Cell Volume 89.7 fl (78-100); Mean Corpuscular Hemoglobin 27.4 pg (26-32); Mean Corpuscular Hgb Concent. 30.5 g/dl (32-36); Mean Platelet Volume 11.1 fl (7.5-11.0); Monocyte (Absolute #) 0.53 (0.0-1.3); Monocytes % 10.1 % (0.0-12.0); Neutrophil % 63.9 % (36.0-66.0); Platelet Count 255 K/mm3 (150-450); Red Cell Distribution Width 18.5 % (11.5-14.0); White Blood Count 5.3 K/mm3 (4.0-10.5)
[2021-03-13 17:25] LABS: ALBUMIN 3.6 g/dL (3.5-5.0); ALKALINE PHOSPHATASE 111 U/L (38-126); ANION GAP 10.4 MEQ/L (5-15); BLOOD UREA NITROGEN 9 mg/dL (7-17); CHLORIDE 106 mmol/L (98-107); Calcium 8.8 mg/dL (8.4-10.2); Carbon Dioxide 28 mmol/L (22-30); Creatinine 1 0.53 mg/dL (0.52-1.04); EST GLOMERULAR FILTRATION RATE > 60.0 ML/MIN; Glucose 79 mg/dL (74-106); Potassium 3.7 mmol/L (3.5-5.1); SGOT/AST 52 U/L (14-36); SGPT/ALT 31 U/L (0-35); SODIUM 140 mmol/L (137-145); Total Protein 6.2 g/dL (6.3-8.2)
[2021-03-13 17:31] LABS: Appearance CLEAR (CLEAR); Bilirubin NEGATIVE (NEGATIVE); Blood MODERATE Ery/ul (0-5); Epithelial Cells RARE /HPF (FEW); Glucose NEGATIVE (NEGATIVE); Ketones NEGATIVE (NEGATIVE); Leukocyte Esterase NEGATIVE (NEGATIVE); Mucus SLIGHT /HPF (NEGATIVE); Nitrite NEGATIVE (NEGATIVE); Protein,Urine Dip NEGATIVE (Negative); Specific Gravity 1.019 (1.005-1.025); Urobilinogen 2 mg/dL (0-1)
[2021-03-13] MEDS ORDERED: Sodium Chloride 0.9% 1000 ML 1,000 ML IV STA (18:04)
[2021-03-13] MEDS ORDERED: Sodium Chloride 0.9% 1000 ML 1,000 ML ONE (18:10)
--- NOTE | 2021-03-13 18:10 | ERPHSYRPT ---
- History of Present Illness Source: patient Exam Limitations: no limitations Patient Subjective Stated Complaint: Pt states that she has a headache, dizziness, and low grade fever yesterday of 99.0, and she called Dr. Covarrubias office and the nurse asked her to check her BP and she said that is was 143/96 and the nurse told her to come to the ER, pt delivered by on 03/10/21, pt states that she was anemic prior to delivery Triage Nursing Assessment: Pt brought to the ER by her , vitals wnl, states that she has a mild headache but denies pain, no edema, no complications during or during , doesn't appear to be in any distress Physician History: 20 yo wf w L frontal MCMANUS x 8-9 hours. Pain 2/10, throbbing but has been up to 8/10. She denies N/V/focal weakness/fever. Pt had a on 03/10/21 and states that she had a spinal block. Timing/Duration: other (8-9 hrs) Quality: throbbing Head Pain Location: frontal Severity of Pain-Max: mild Severity of Pain-Current: severe Recent Head Trauma: no recent headache/trauma Modifying Factors: Improves With: other (Nothing makes better or worse) Associated Symptoms: No confusion, No dizziness, No fatigue, No facial pain, No fever/chills, No flushing, No light-headedness, No loss of consciousness, No nausea/vomiting, No nasal congestion, No nasal drainage, No neck pain, No numbness in legs/feet, No rash, No sweating, No scotoma, No seizures, No sinus infection, No sensitive to light, No speech problems, No stiff neck, No trouble walking, No vision changes, No visual disturbance, No weakness Previous symptoms: no prior history Allergies/Adverse Reactions: No Known Drug Allergies Allergy (Verified 03/13/21 16:36) Home Medications: Vits W-Ca,Fe,FA(<1Mg) [] 1 tab PO DAILY 11/08/20 [History] Travel Risk - International Travel Have you traveled outside of the country in past 3 weeks: No - Coronavirus Screening Are you exhibiting any of the following symptoms?: No Close contact with a COVID-19 positive Pt in past 14-21 Days: No - Vaccine Status Have you recieved a Covid-19 vaccination: No - Review of Systems Constitutional: No Symptoms Eyes: No Symptoms Ears, Nose, & Throat: No Symptoms Respiratory: No Symptoms Cardiac: No Symptoms Genitourinary Symptoms: No Symptoms Musculoskeletal: No Symptoms Skin: No Symptoms Neurological: No Symptoms, Headache Psychological: No Symptoms Endocrine: No Symptoms Hematologic/Lymphatic: No Symptoms Immunological/Allergic: No Symptoms - Past Medical History Pertinent Past Medical History: Yes Neurological History: No Pertinent History ENT History: No Pertinent History Cardiac History: Other Respiratory History: No Pertinent History Endocrine Medical History: No Pertinent History Musculoskeletal History: No Pertinent History GI Medical History: No Pertinent History History: Other Psycho-Social History: Anxiety Female Reproductive Disorders: No Pertinent History Other Medical History: kidney stone, heart 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, anemia - Past Surgical History Past Surgical History: Yes Neuro Surgical History: No Pertinent History Cardiac: Cardiac Catheterization Respiratory: No Pertinent History Female Surgical History: Section, Other Other Surgical History: ectopic surgery - Social History Smoking Status: Never smoker Exposure to second hand smoke: No Drug Use: none Patient Lives Alone: No Significant Family History: no pertinent family hx - Female History Hx Now: No (delivered 3 days ago) - Nursing Vital Signs Nursing Vital Signs: Initial Vital Signs Blood Pressure 134/95 05/28/21 16:27 Pain Scale Pain Intensity 4 - Physical Exam General Appearance: no apparent distress Eye Exam: PERRL/EOMI, eyes nml inspection Ears, Nose, Throat Exam: normal ENT inspection, TMs normal, pharynx normal, moist mucous membranes Neck Exam: normal inspection, non-tender, supple, full range of motion, No meningismus, No mass, No Brudzinski, No Kernig's, No carotid bruit Respiratory Exam: normal breath sounds, lungs clear, airway intact Cardiovascular Exam: regular rate/rhythm, normal heart sounds, normal peripheral pulses, No murmur Gastrointestinal/Abdominal Exam: soft, normal bowel sounds, No tenderness Back Exam: normal inspection, normal range of motion, CVA tenderness Extremity Exam: normal inspection, normal range of motion Mental Status Exam: alert, oriented x 3, cooperative 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 Exam: normal hearing, normal speech, PERRL, No abnormal eye position, No abnormal gag reflex, No abnormal pupil position, No abnormal speech, No facial asymmetry Coordination/Gait Exam: normal finger to nose, normal gait, normal cerebellar function, negative Romberg's sign Motor/Sensory Exam: no motor deficit, no sensory deficit, no pronator drift, negative Babinski's sign DTR Exam: bicep (R): 2+, bicep (L): 2+, knee (R): 2+, knee (L): 2+ Skin Exam: normal color, warm, dry, No rash Lymphatic Exam: No adenopathy SpO2 Interpretation: normal SpO2: 96 O2 Delivery: Room Air - Course Nursing assessment & vital signs reviewed: Yes - CT Exams Head CT Interpretation: Tele-radiologist Report (Neg) Ordered Tests: Active Orders 24 hr Category Date Time Status HEAD WITHOUT CONTRAST [CT] Stat Exams 03/13/21 16:39 Taken CBC W DIFF Stat Lab 03/13/21 17:10 Completed CMP Stat Lab 03/13/21 17:10 Completed UA W/RFX UR CULTURE Stat Lab 03/13/21 17:30 Completed Medication Summary Discontinued Medications Generic Name Dose Route Start Last Admin Trade Name Karriq PRN Reason Stop Dose Admin Acetaminophen 1,000 mg 03/13/21 18:12 03/13/21 18:18 Tylenol Extra Strength 500 Mg PO 03/13/21 18:13 1,000 mg STAT ONE Administration Acetaminophen Confirm 03/13/21 18:17 Tylenol Extra Strength 500 Mg Administered 03/13/21 18:18 Dose 1,000 mg .ROUTE .STK-MED ONE Sodium Chloride 1,000 mls @ 999 mls/hr 03/13/21 18:04 03/13/21 18:11 Sodium Chloride 0.9% 1000 Ml IV 03/13/21 19:04 999 mls/hr .Q1H1M STA Administration Sodium Chloride Confirm 03/13/21 18:10 Sodium Chloride 0.9% 1000 Ml Administered 03/13/21 18:11 Dose 1,000 mls @ ud .ROUTE .STK-MED ONE Lab/Rad Data: Laboratory Result Diagrams 03/13/21 17:10 03/13/21 17:10 Laboratory Results 03/13/21 03/13/21 03/13/21 Range/Units 17:30 17:10 17:10 WBC 5.3 (4.0-10.5) K/mm3 RBC 3.80 L (4.1-5.4) M/mm3 Hgb 10.4 L (12.0-16.0) gm/dl Hct 34.1 L (35-47) % MCV 89.7 (78-100) fl MCH 27.4 (26-32) pg MCHC 30.5 L (32-36) g/dl RDW 18.5 H (11.5-14.0) % Plt Count 255 (150-450) K/mm3 MPV 11.1 H (7.5-11.0) fl Gran % 63.9 (36.0-66.0) % Eos # (Auto) 0.25 (0-0.5) Absolute Lymphs (auto) 1.10 (1.0-4.6) Absolute Monos (auto) 0.53 (0.0-1.3) Lymphocytes % 20.9 L (24.0-44.0) % Monocytes % 10.1 (0.0-12.0) % Eosinophils % 4.7 (0.00-5.0) % Basophils % 0.4 (0.0-0.4) % Absolute Granulocytes 3.37 (1.4-6.9) Basophils # 0.02 (0-0.4) Sodium 140 (137-145) mmol/L Potassium 3.7 (3.5-5.1) mmol/L Chloride 106 (98-107) mmol/L Carbon Dioxide 28 (22-30) mmol/L Anion Gap 10.4 (5-15) MEQ/L BUN 9 (7-17) mg/dL Creatinine 0.53 (0.52-1.04) mg/dL Estimated GFR > 60.0 ML/MIN Glucose 79 (74-106) mg/dL Calcium 8.8 (8.4-10.2) mg/dL Total Bilirubin 0.30 (0.2-1.3) mg/dL AST 52 H (14-36) U/L ALT 31 (0-35) U/L Alkaline Phosphatase 111 (38-126) U/L Serum Total Protein 6.2 L (6.3-8.2) g/dL Albumin 3.6 (3.5-5.0) g/dL Urine Color YELLOW (YELLOW) Urine Appearance CLEAR (CLEAR) Urine pH 6.0 (5-6) Ur Specific [place] 1.019 (1.005-1.025) Urine Protein NEGATIVE (Negative) Urine Ketones NEGATIVE (NEGATIVE) Urine Blood MODERATE (0-5) [place]/ul Urine Nitrite NEGATIVE (NEGATIVE) Urine Bilirubin NEGATIVE (NEGATIVE) Urine Urobilinogen 2 (0-1) mg/dL Ur Leukocyte Esterase NEGATIVE (NEGATIVE) Urine WBC (Auto) 3-5 (0-5) /HPF Urine RBC (Auto) NONE (0-2) /HPF U Epithel Cells (Auto) RARE (FEW) /HPF Urine Bacteria (Auto) NONE (NEGATIVE) /HPF Urine Mucus (Auto) SLIGHT (NEGATIVE) /HPF Urine Culture Reflexed NO (NO) Urine Glucose NEGATIVE (NEGATIVE) mg/dL - Progress Progress Note: 03/13/21 18:09 1L NS bolus Spinal block per Dr. Lee, so possible post LP MCMANUS 03/13/21 18:12 1gm po tylenol 03/13/21 18:[address] Lee, wants to start Procardia xl 30mg daily 03/13/21 21:02 Counseled pt/family regarding: lab results, diagnosis, need for follow-up, rad results - Departure Departure Disposition: Home Clinical Impression: Headache Condition: Stable Critical Care Time: No Referrals: PRIYA LAST [Primary Care Provider] - Instructions: Headache, Adult (DC) Additional Instructions: Follow up with your family MD or Ob Return to ER for increasing pain/Temperature greater than 100.5/focal weakness Follow up with Dr. Lee next week Prescriptions: Nifedipine [Procardia Xl] 30 mg PO DAILY #14 tab.er.24
[2021-03-13] MEDS ORDERED: TYLENOL EXTRA STRENGTH 500 MG PO ONE (18:12)
[2021-03-13] MEDS ORDERED: TYLENOL EXTRA STRENGTH 500 MG ONE (18:17)
[2021-03-13 19:59] VITALS: BP 145/94; PULSE 72
[2021-03-13 21:03] VITALS: O2SAT 96
--- NOTE | 2021-03-13 21:37 | XRAY ---
Indication: Severe headache. 5 days. Multiple contiguous axial images obtained through the head without contrast. Comparison: None Normal appearing brain parenchyma, ventricles, and bony calvarium. Visualized paranasal sinuses and mastoid air cells are clear. Impression: Normal CT head without contrast exam. Comment: Preliminary interpretation was made by [facility]. No critical discrepancy.
== END 2021-03-13 20:00 | disposition home or self-care (01) ==
LOC: ED 16:20
DX: R51.9 Headache, unspecified (principal)
CPT/HCPCS: 36000; 36415; 70450; 80053; 81001; 85025; 96360; 99284; A9270-GY

== ENCOUNTER 2021-08-13 10:31 | Day surgery (SDC) | payer MEDICAID ==
--- NOTE | 2021-08-12 12:56 | HP ---
AMENDED REPORT: DATE OF SURGERY: 08/13/2021 HISTORY OF PRESENT ILLNESS: The patient presents for cholecystectomy. The patient apparently has been putting this off since last year. The patient was noted to have some cholelithiasis on imaging. The patient is symptomatic with some pain. The patient had gallbladder ultrasound showing she has four gallstones, the largest was 1.4 cm. It also showed she has a 3 mm stone stuck in the neck of her gallbladder. PAST MEDICAL HISTORY: None. PAST SURGICAL HISTORY: Two sections. Tubal ligation. Heart cath. ALLERGIES: NKDA. MEDICATIONS: None. FAMILY HISTORY: Seizures. Cancer. SOCIAL HISTORY: None. REVIEW OF SYSTEMS: CONSTITUTIONAL: Denies fever or chills. CHEST: Denies shortness of breath. CVS: Denies chest pain. ABDOMEN: Reports abdominal pain. Denies nausea, vomiting, diarrhea or constipation. PHYSICAL EXAMINATION: GENERAL: No acute distress. CHEST: Nonlabored. No shortness of breath. CVS: Regular rate and rhythm. ABDOMEN: Soft, nontender. IMPRESSION: Symptomatic cholelithiasis. PLAN: Laparoscopic cholecystectomy with Dr. Destin Yee. As dictated by Kesha Hightower NP.
[~2021-08-13 10:31] MED LIST: BRIDION 200MG/2ML IV ONE; DIPRIVAN 200 MG/20 ML IV ONE; Decadron 4 MG INJ ONE; Lactated Ringers 1,000 ML IV ONE; SUBLIMAZE 250 MCG/5 ML ONE; Sensorcaine 0.25% 10 ML ONE; TORAdol 30 mg Injection ONE; Versed 2 MG/2 ML Injection ONE; Zemuron 100 MG/10 ML ONE; Zofran 4 MG/2 ML VIAL ONE
[2021-08-13] MEDS ORDERED: Lactated Ringers 1,000 ML IV SCH (11:00)
[2021-08-13] MEDS ORDERED: MEFOXIN 2 GM PREMIX** 2 GM/50 ML ML IV ONE (11:02)
[2021-08-13] MEDS ORDERED: Lactated Ringers 1,000 ML IV ONE ×2 (11:02→13:07)
[2021-08-13] MEDS ORDERED: MEFOXIN 2 GM PREMIX** 2 GM/50 ML ML IV SCH (12:00)
[2021-08-13] MEDS ORDERED: Zemuron 100 MG/10 ML ONE ×2 (12:56→13:03)
--- NOTE | 2021-08-13 13:43 | OP ---
SURGERY DATE/TIME: 08/13/2021 1242 PREOPERATIVE DIAGNOSIS: Symptomatic cholelithiasis. POSTOPERATIVE DIAGNOSIS: Symptomatic cholelithiasis. PROCEDURE: Laparoscopic cholecystectomy. SURGEON: Dr. Destin Yee. ANESTHESIA: General endotracheal tube. COMPLICATIONS: None. CONDITION: Stable. INDICATIONS: Upper abdominal pain, ultrasound positive. Seen and examined, procedure discussed. DESCRIPTION OF PROCEDURE AND FINDINGS: Taken to surgery. General anesthetic, routine prep and drape. Veress needle inserted. Opening pressure of 1, insufflating pressure 14. Four - 5's. Good visualization. Of incidental note, she had two sections. Her uterus was really anchored up against the anterior abdominal wall. The anterior two-thirds of the uterus was totally obliterated against the anterior abdominal wall. She also had an ectopic. Her two ovaries were visible and were satisfactory. She had a light coat of blood basically on both tubes and uterus and this is 2 inches below the Veress site and had nothing to do with the Veress needle. I believe she is having retrograde menses or a little wisp of endometriosis. Her tubes both looked fairly amorphous. Appendix was actually rolling up over the right tube. The gallbladder was packed with stones. It was elevated upwards. Cystic duct defined. Cystic artery defined. Both structures triply clipped and transected. Clips noted across and well approximated. Gallbladder rolled out of gallbladder fossa. The gallbladder delivered through the umbilical port with slight widening. There is basically five - 1 cm stones packed in a row in the gallbladder this was removed intact. Hole closure device 0 Vicryl two sutures. Skin closed with 4-0 Vicryl and Steri-Strips. The patient tolerated the procedure satisfactorily.
[2021-08-13] MEDS ORDERED: SUBLIMAZE 100 MCG/2 ML ONE (13:53)
[2021-08-13] MEDS ORDERED: Hydromorphone 1 mg/ml Injection ONE (13:53)
[2021-08-13] MEDS ORDERED: Zofran 4 MG/2 ML VIAL ONE (15:26)
[2021-08-13] MEDS ORDERED: Zofran 4 MG/2 ML VIAL IV STA (15:46)
[2021-08-13 16:00] VITALS: O2SAT 100
[2021-08-13 16:47] VITALS: BP 128/84; PULSE 78
== END 2021-08-13 16:30 | disposition home or self-care (01) ==
LOC: SDC 10:31
PROVIDERS: ATTEND Surgery
DX: K80.20 Calculus of gallbladder without cholecystitis without obstruction (principal)
CPT/HCPCS: 84703; 88304; J0694; J1100; J1170; J1885; J2250; J2405; J2704; J3010